=== PATIENT | male | born 1950 | race Caucasian/White ===

== ENCOUNTER 2018-04-23 13:21 | Day surgery (SDC) | payer MEDICARE, BC ==
[~2018-04-23] VITALS: Ht 177.8 cm; Wt 124.2 kg
[2018-04-23] MEDS ORDERED: PRINIVIL10 MG PO (13:48)
[2018-04-23] MEDS ORDERED: FARXIGA10 PO (13:48)
[2018-04-23] MEDS ORDERED: OMEGA-3 1000 MG1 CAP PO (13:48)
[2018-04-23] MEDS ORDERED: DYAZIDE 25 MG-31 CAP PO (13:49)
[2018-04-23] MEDS ORDERED: GLUCOPHAGE XR500 M1 PO (13:50)
[2018-04-23] MEDS ORDERED: FLOMAX 0.40.4 MG/CAP PO (13:50)
[2018-04-23] MEDS ORDERED: ONGLYZA5 MG PO (13:51)
[2018-04-23] MEDS ORDERED: ASPIRIN 81M81 MG/TA2 PO (13:52)
[2018-04-23] MEDS ORDERED: NATURAL POTASS595 MG PO (13:52)
[2018-04-23 16:33] VITALS: TEMP 99
[2018-04-23 17:00] VITALS: BP 130/72; PULSE 53
[2018-04-23 17:15] VITALS: BP 136/62; PULSE 55
[2018-04-23 17:30] VITALS: BP 134/64; PULSE 57
[2018-04-23 17:45] VITALS: BP 136/72; PULSE 56
== END 2018-04-23 18:45 | disposition home or self-care (01) ==
LOC: SDCO 13:21 → SURG 16:54 → SDCO 18:45
DX: N30.01 Acute cystitis with hematuria (principal); N30.21 Other chronic cystitis with hematuria; Z87.891 Personal history of nicotine dependence; E11.9 Type 2 diabetes mellitus without complications; E78.00 Pure hypercholesterolemia, unspecified; E78.5 Hyperlipidemia, unspecified; I10 Essential (primary) hypertension; G47.33 Obstructive sleep apnea (adult) (pediatric); E23.0 Hypopituitarism; Z94.9 Transplanted organ and tissue status, unspecified; Z79.82 Long term (current) use of aspirin; Z79.84 Long term (current) use of oral hypoglycemic drugs; Z88.2 Allergy status to sulfonamides; Z88.8 Allergy status to other drugs, medicaments and biological substances; Z80.0 Family history of malignant neoplasm of digestive organs; Z83.3 Family history of diabetes mellitus; Z82.49 Family history of ischemic heart disease and other diseases of the circulatory system; Z84.1 Family history of disorders of kidney and ureter; Z80.52 Family history of malignant neoplasm of bladder
CPT/HCPCS: OP; J0690; J1100; J1885; J2405; J2704; J2765; J3010; J7030; Q9967